=== PATIENT | female | born 1990 | race Caucasian/White ===

== ENCOUNTER 2019-01-08 00:44 | Emergency (ER) | payer OTHER ==
[~2019-01-08] VITALS: Ht 149.9 cm; Wt 47.6 kg
[~2019-01-08 00:44] MED LIST: AMOXICILLIN500 MG PO; BACTRIM DS TAB1 EACH PO; CLONIDINE HCL0.2 MG PO; FLUOXETINE HCL10 MG PO; IMITREX25 MG PO; LISINOPRIL10 MG PO; METHOCARBAMOL500 MG PO; MOTRIN IB200 MG PO; NAPROXEN500 MG PO; NORCO 5-325 TA1 EACH PO; PROPRANOLOL HC160 MG PO; SPRINTEC1 EACH PO
== END 2019-01-08 03:18 | disposition home or self-care (01) ==
LOC: ED 00:44
DX: R20.2 Paresthesia of skin (principal); I10 Essential (primary) hypertension; Z88.8 Allergy status to other drugs, medicaments and biological substances; Z79.899 Other long term (current) drug therapy
CPT/HCPCS: 80053; 81001; 84443; 85025; 99284; Q0163

== ENCOUNTER 2019-02-03 17:40 | Emergency (ER) | payer OTHER ==
[~2019-02-03] VITALS: Ht 149.9 cm; Wt 54.4 kg
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
[2019-02-03] MEDS ORDERED: CAMRESE 0.15-01 EACH PO (18:02)
== END 2019-02-03 19:23 | disposition home or self-care (01) ==
LOC: ED 17:40
DX: R10.32 Left lower quadrant pain (principal); I10 Essential (primary) hypertension; G43.909 Migraine, unspecified, not intractable, without status migrainosus; Z88.8 Allergy status to other drugs, medicaments and biological substances; Z79.899 Other long term (current) drug therapy
CPT/HCPCS: 80053; 81001; 83690; 84703; 85025; 96361; 96374; 96375; 99284-25; J1790; J1885; J7030

== ENCOUNTER 2019-05-05 18:46 | Emergency (ER) | payer OTHER ==
[~2019-05-05] VITALS: Ht 149.9 cm; Wt 54.4 kg
[~2019-05-05 18:46] MED LIST changes: +CAMRESE 0.15-01 EACH PO
--- OUTSIDE RECORDS SUMMARY | 2019-05-05 18:48 | XMS ---
PreManage Notification: TESSA FLEMING Security Seat Cover Cutter Events No recent Security Events currently on file CRITERIA MET - [facility] Care Guidelines CARE PROVIDERS PETE SCHMITT Physician Neon Sign Erector: Medical 02/04/2019-Current PHONE: [phone] Guidelines Source: [facility] Guidelines Date: 01/10/2019 Care Coordination: Mental health services provided by [facility].\T\nbsp; Please contact [facility] with mental health concerns.\T\nbsp; [place] [phone]\T\ nbsp; [place]: [phone]. E.D. VISIT COUNT (12 MO.) [address] [place] [address] TOTAL 3 NOTE: Visits indicate total known visits. ED/UCC VISIT TRACKING (12 MO.) 05/05/2019 18:46 [facility] S[facility] OR TYPE: Emergency COMPLAINT: - HEADACHE 02/03/2019 17:41 [facility] S[facility] OR TYPE: Emergency COMPLAINT: - ABDOMINAL PAIN DIAGNOSES: - Migraine, unsp, not intractable, without status migrainosus - Essential (primary) hypertension - Other terminologist (current) drug therapy - Allergy status to oth drug/meds/biol subst status - Left lower quadrant pain 01/08/2019 00:45 [facility] TYPE: Emergency COMPLAINT: - NUMB HANDS AND FEET, SLURRED SPEECH DIAGNOSES: - Paresthesia of skin - Other alf (current) drug therapy - Essential (primary) hypertension - Allergy status to oth drug/meds/biol subst status INPATIENT VISIT TRACKING (12 MO.) No inpatient visits to display in this time frame [email or web address]
== END 2019-05-05 23:00 | disposition home or self-care (01) ==
LOC: ED 18:46
DX: G43.909 Migraine, unspecified, not intractable, without status migrainosus (principal); I10 Essential (primary) hypertension; Z79.899 Other long term (current) drug therapy
CPT/HCPCS: 96361; 96374; 96375; 99283-25; J1170; J1200; J1885; J2765; J7030

== ENCOUNTER 2020-10-30 16:51 | Emergency (ER) | payer OTHER ==
[~2020-10-30] VITALS: Ht 149.9 cm; Wt 54.4 kg
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
[2020-10-30] MEDS ORDERED: DULOXETINE HCL30 MG PO (16:59)
[2020-10-30] MEDS ORDERED: HYDROXYZINE HCL25 MG PO (17:00)
--- NOTE | 2020-10-30 18:38 | EKG ---
[facility] [address] [place], [place] [address] Signed Sinus tachycardia Otherwise normal ECG No previous ECGs available Confirmed by MAIKOL ZAVALA DO ([id number]) on 10/30/2020 6:38:42 PM Electronically Signed By: MAIKOL ZAVALA DO 10/30/20 1838 PATIENT NAME: TESSA FLEMING Electrocardiogram DATE OF : 89 PHYSICIAN: MAIKOL ZAVALA DO REPORT #: [id number] REPORT IS CONFIDENTIAL AND NOT TO BE RELEASED WITHOUT AUTHORIZATION
[2020-10-30] MEDS ORDERED: ONDANSETRON ODT8 MG PO (19:26)
[2020-10-30] MEDS ORDERED: ATIVAN1 MG PO (19:26)
== END 2020-10-30 19:41 | disposition home or self-care (01) ==
LOC: ED 16:51
DX: H83.09 Labyrinthitis, unspecified ear (principal); I10 Essential (primary) hypertension; G43.909 Migraine, unspecified, not intractable, without status migrainosus; Z88.8 Allergy status to other drugs, medicaments and biological substances; Z79.899 Other long term (current) drug therapy
CPT/HCPCS: 80053; 83735; 84484; 84703; 85025; 93005; 93010; 96374; 96375; 99285-25; J2060; J2405; J7040

== ENCOUNTER 2021-04-29 13:28 | Emergency (ER) | payer OTHER ==
[~2021-04-29] VITALS: Ht 149.9 cm; Wt 62.9 kg
[~2021-04-29 13:28] MED LIST changes: +ATIVAN1 MG PO; +DULOXETINE HCL30 MG PO; +HYDROXYZINE HCL25 MG PO; +ONDANSETRON ODT8 MG PO
--- OUTSIDE RECORDS SUMMARY | 2021-04-29 15:42 | XMS ---
PreManage Notification: TESSA FLEMING Security Cardiac Surgeon Events No recent Security Events currently on file CRITERIA MET - [facility] CARE PROVIDERS WILLIAMS ROTHMAN Physician Government Affairs Specialist Current PHONE: [phone] PETE SCHMITT Physician Government Affairs Specialist: Medical 02/04/2019-Current PHONE: [phone] Care Guidelines exist for the following facilities: [facility] ( 01/10/2019 ) Kandi VISIT COUNT (12 MO.) [address] [facility] TOTAL 2 NOTE: Visits indicate total known visits. ED/UCC VISIT TRACKING (12 MO.) 04/29/2021 13:28 [facility] S[facility] OR TYPE: Emergency COMPLAINT: - POSS OVARIAN CYST 10/30/2020 16:51 [facility] S[facility] OR TYPE: Emergency COMPLAINT: - DIZZINESS DIAGNOSES: - Weakness - Other braided rug maker (current) drug therapy - Essential (primary) hypertension - Labyrinthitis, unspecified ear - Allergy status to other drugs, medicaments and biological substances - Migraine, unspecified, not intractable, without status migrainosus INPATIENT VISIT TRACKING (12 MO.) No inpatient visits to display in this time frame [id number]
[2021-04-29] MEDS ORDERED: ASHLYNA 0.15-01 EACH PO (15:44)
== END 2021-04-29 19:21 | disposition home or self-care (01) ==
LOC: ED 13:28
DX: K59.00 Constipation, unspecified (principal); I10 Essential (primary) hypertension; G43.909 Migraine, unspecified, not intractable, without status migrainosus; Z88.8 Allergy status to other drugs, medicaments and biological substances; Z79.899 Other long term (current) drug therapy
CPT/HCPCS: 36415; 74177; 80053; 81001; 83690; 84703; 85025; 96375; 99284-25; A9270; J1885; J2405; J7030; Q9967

== ENCOUNTER 2022-04-16 14:09 | Emergency (ER) | payer OTHER ==
[~2022-04-16] VITALS: Ht 149.9 cm; Wt 62.6 kg
[~2022-04-16 14:09] MED LIST changes: +ASHLYNA 0.15-01 EACH PO
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
[2022-04-16] MEDS ORDERED: NAPROSYN500 MG PO (16:36)
[2022-04-16] MEDS ORDERED: CEPHALEXIN500 M1 PO (16:36)
== END 2022-04-16 17:03 | disposition home or self-care (01) ==
LOC: ED 14:09
DX: S51.812A Laceration without foreign body of left forearm, initial encounter (principal); S60.212A Contusion of left wrist, initial encounter; I10 Essential (primary) hypertension; G43.909 Migraine, unspecified, not intractable, without status migrainosus; Z23 Encounter for immunization; Z79.899 Other long term (current) drug therapy; Z20.822 Contact with and (suspected) exposure to COVID-19; V89.2XXA Person injured in unspecified motor-vehicle accident, traffic, initial encounter
CPT/HCPCS: 36415; 70450; 71260; 72125; 73080; 73090; 74177; 80053; 81003; 83690; 84702; 85025; 86850; 86900; 86901; 87502; 90471; 90714; 99284-25; C9803; G0480; J1170; J2405; Q9967; U0003

== ENCOUNTER 2022-07-07 12:11 | Emergency (ER) | payer OTHER ==
[~2022-07-07] VITALS: Ht 149.9 cm; Wt 71.0 kg
[~2022-07-07 12:11] MED LIST changes: +CEPHALEXIN500 M1 PO; +NAPROSYN500 MG PO
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
[2022-07-07] MEDS ORDERED: EMGALITY120 MG/1 M SUB-Q (12:28)
[2022-07-07] MEDS ORDERED: ZOLPIDEM TARTRA10 MG PO (12:29)
[2022-07-07] MEDS ORDERED: DULOXETINE HCL60 MG PO (12:29)
[2022-07-07] MEDS ORDERED: GABAPENTIN600 MG PO (12:29)
[2022-07-07] MEDS ORDERED: VERAPAMIL HCL40 MG PO (12:29)
[2022-07-07] MEDS ORDERED: NURTEC ODT75 MG PO (12:30)
[2022-07-07] MEDS ORDERED: ATENOLOL25 MG PO (12:30)
[2022-07-07] MEDS ORDERED: ONDANSETRON ODT8 MG PO (15:42)
[2022-07-07] MEDS ORDERED: CEPHALEXIN500 M1 PO (15:42)
[2022-07-07 16:08] VITALS: BP 130/91
== END 2022-07-07 16:08 | disposition home or self-care (01) ==
LOC: ED 12:11
DX: N12 Tubulo-interstitial nephritis, not specified as acute or chronic (principal); I10 Essential (primary) hypertension; Z88.0 Allergy status to penicillin; Z88.8 Allergy status to other drugs, medicaments and biological substances; Z79.899 Other long term (current) drug therapy
CPT/HCPCS: 36415; 80053; 81001; 83690; 83735; 84703; 85025; J0696; J1885; J2405; J7030